=== PATIENT | female | born 1965 | race Caucasian/White ===

== ENCOUNTER 2019-07-27 12:28 | Inpatient (IN) | payer MEDICAID ==
[~2019-07-27] VITALS: Ht 160 cm; Wt 49.4 kg
[2019-07-27] MEDS ORDERED: ACETAMINOPHEN TAB 650MG DOSE (2X325MG) PO PRN (12:45)
[2019-07-27] MEDS ORDERED: traZODone 50 MG TAB PO PRN (12:45)
[2019-07-27] MEDS ORDERED: MAALOX 30 ML SUSP *UDC PO PRN (12:45)
[2019-07-27] MEDS ORDERED: MOM 30ML SUSPENSION UDC PO PRN (12:45)
[2019-07-27 15:23] VITALS: BP 107/63
[2019-07-27] MEDS ORDERED: Vitamin B PO (15:32)
--- NOTE | 2019-07-27 16:04 | HPEPDOC ---
General Date of Admission Jul 27, 2019 at 15:17 Date of Service: Jul 27, 2019 Chief Complaint The patient is a 54-year-old female admitted with a reason for visit of Unspecified Bipolar Disorder. Source: Patient, Other (EMR) History of Present Illness This is a 54 years old female with past medical history of unspecified psychiatric disorder, empty sella syndrome, possible schizophrenia, was recently admitted to this hospital when she was transferred from [facility] with altered mental status. Patient had extensive workup done at [facility], including CT head, MRI and all the blood work and was found to be essentially unremarkable and was seen by psychiatry and will be transferred to inpatient mental health unit for possible schizophrenia secondary to an hallucinations. Home Medications Scheduled [Vitamin B] , Unknown Dose PO DAILY for General health, (Reported) Allergies Coded Allergies: No Known Allergies (Verified Allergy, Unknown, 07/26/19) Past Medical History Medical History Schizophrenia. Empty sella syndrome, on the specifics psychiatric disorder Surgical History . Family History Significant Family History: No pertinent family hx Social History * Smoker: Denies Alcohol: Denies Drugs: denies A-FIB/CHADSVASC A-FIB History Current/History of A-Fib/PAF?: No Review of Systems Constitutional: Denies: Chills, Fever, Malaise, Night Sweats, Weakness, Fatigue, Weight Loss, Lethargy, Other Eyes: Denies: Pain, Vision change, Conjunctivae inflammation, Eyelid inflammation, Redness, Other ENT: Denies: Head Aches, Ear Pain, Dysphagia, Sinus Congestion, Post Nasal Drip, Sore Throat, Epistaxis, Other Symptoms Skin: Denies: Rash, Lesions, Jaundice, Bruising, Itching, Dry, Breakdown, Nail Changes, Other Pulmonary: Denies: Dyspnea, Cough, Pleuritic Chest Pain, Other Symptoms Cardiovascular: Denies: Chest Pain, Palpitations, Orthopnea, Paroxysmal Noc. Dyspnea, Edema, Lt Headedness, Other Symptoms Gastrointestinal: Denies: Nausea, Vomiting, Abdominal Pain, Diarrhea, Constipation, Melena, Hematochezia, Other Symptoms Endocrine: Denies: Polydipsia, Polyphagia, Polyuria, Heat Intolerance, Cold Intolerance, Other Endocrine Sx Musculoskeletal: Denies: Neck Pain, Back Pain, Shoulder Pain, Arm Pain, Hand Pain, Leg Pain, Foot Pain, Joint Pain, Muscle Pain, Spasms, Other Symptoms Psych: Denies: Mood Normal, Anxiety, Depression, Memory Issues, Thoughts of Self Harm, Anger, Thoughts of Harming Other, Other Psych Physical Examination General Exam: Positive: Alert, Cooperative Eye Exam: Positive: PERRLA, Conjunctiva & lids normal ENT Exam: Positive: Atraumatic Neck Exam: Positive: Supple, JVD Chest Exam: Positive: Clear to auscultation, Normal air movement Heart Exam: Positive: Rate Normal, Normal S1, Normal S2 Abdomen Exam: Positive: Normal bowel sounds, Soft, Tenderness Extremity Exam: Positive: Normal pulses Skin Exam: Positive: Nl turgor and temperature Neuro Exam: Positive: Strength at 5/5 X4 ext, Sensation Intact Psych Exam: Positive: Mental status NL, Oriented x 3 Vital Signs Vital Signs Date Time Temp Pulse Resp B/P (MAP) Pulse Ox O2 Delivery O2 Flow Rate FiO2 07/27/19 15:23 97.9 90 16 107/63 (78) 100 Room Air Problems (1) Schizophrenia Status: Acute Problem Specific Plan: Consult Specialist Problem Text: 54 years old female with past medical history of unspecified psychiatric disorder, was transferred from [facility] as directed admission to [facility] with altered mental status. Patient had a paranoid delusions and the visual hallucinations and patient was seen by psychiatry and is being admitted to inpatient mental health unit for possible psychosis/schizophrenia Patient does not have a history of any medical conditions. We will review all her medical records and if any blood work is needed, we'll order during his stay in the [facility]. Patient will participate in individual and group counseling psychiatric meds as per Jessica , We will closely monitor patient while she is in [facility] (2) Empty sella syndrome Status: Chronic Problem Text: No further recommendation at this point Plan / VTE VTE Prophylaxis Ordered?: No VTE Exclusion Mechanical Proph: Low Risk for VTE VTE Exclusion Pharmacological: At Low Risk for VTE TRISH CHAN MD Jul 27, 2019 16:04
[2019-07-27] MEDS: risperiDONE 1 MG TAB PO SCH (21:00)
--- NOTE | 2019-07-27 22:35 | MHHPE ---
DATE OF ADMISSION: 07/27/2019 CURRENT MEDICATION: None. CHIEF COMPLAINT: Patient was found wandering disoriented at [facility]. HISTORY OF PRESENT ILLNESS: This is a 54-year-old white female, , living with her and adult son. She was found wandering the halls at the local hospital in a confused state. Patient was then transferred to [facility] for psychiatric assessment and medical evaluation. Patient was noted to be disoriented in the emergency room. She was no oriented to time. Her speech was noted to be quite tangential. After the patient was medically cleared, a psychiatric consult was requested. The patient was seen and interviewed as was her , [place]. The patient reports that people are spying on her. There are cameras in her bathroom installed by Carmelo Sandoval. She claims that there was a conspiracy run by the local police to spy on her. She claims that people are entering the house, stealing items and then returning them. She sends her son multiple text messages claiming that people are watching her and spying upon her. She claims to have a special friendship with TV channel personality Kathleen Del Valle. She claims that this personality speaks to her over the television. Patient's states that his has been going downhill for the past 18 months. She has been more agitated over the last 4 to 6 weeks. He brought her in to the local mental health clinic yesterday. They made a followup appointment, but did not recommend hospitalization. Patient herself minimizes any symptoms. She claims her appetite is good, however, her has noted marked weight loss over the past year. She claims her concentration is fine. She denies sleep issues, but her states that she is often up all night. PAST PSYCHIATRIC HISTORY: Patient denies. Patient's states that his has never seen a psychiatrist. PAST MEDICAL HISTORY: Patient claims she is healthy. Patient did get an MRI which shows evidence of possible empty sella syndrome. ALLERGIES: Patient denies. LEGAL ISSUES: Patient denies. CHEMICAL DEPENDENCY HISTORY: Negative. SOCIAL HISTORY: Patient born in [place] and raised in [place], [place]. She currently lives in [place], [place] with her and son, age 29. She had a son Hany who Committed suicide about 6 or 7 years ago. The patient is a high school graduate. 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 FAMILY PSYCHIATRIC HISTORY: Patient's son who committed suicide had a diagnosis of schizophrenia. MENTAL STATUS EXAM: Patient is alert and oriented. She is pleasant. She is not agitated. She has poor insight and poor judgment. Speech is quite rapid and pressured. Patient reports auditory hallucinations. She reports paranoid ideation with conspiracy themes. No current signs of depression. Patient does appear to be manic. No signs of cognitive deficits. Memory functions are intact. Fund of information appears within normal limits. ASSESSMENT: The patient appears to have a psychotic state either bipolar or schizophrenic in nature. She clearly can benefit from antipsychotic medication such as Risperdal. Length of stay; 7-10 days. DIAGNOSES: Bipolar disorder, manic with psychotic features. Rule out schizoaffective disorder. PLAN: Admit 9.39. Start trial of Risperdal 1 mg twice a day. Involve in hospital milieu. Staff to work with family for discharge planning.
[2019-07-28 05:58] VITALS: BP 114/68
[2019-07-28] MEDS: risperiDONE 1 MG TAB PO SCH ×2 (08:35→21:00)
[2019-07-28 16:20] VITALS: BP 114/63
[2019-07-29 05:43] VITALS: BP 116/67
--- NOTE | 2019-07-29 08:10 | MHIPN ---
DATE: 07/28/2019 VITAL SIGNS: Temperature 98.3, pulse 92, respirations 14, blood pressure 114/68. CURRENT MEDICATIONS: - Risperdal 1 mg twice a day; patient refusing HISTORY OF THE PRESENT ILLNESS: Patient claims she does not need to be in the hospital. She threatens to call the local rug cleaner hand to intervene to get her out of the hospital. She claims she will have the state troopers take her home. Patient reports bizarre ideation to staff; for example, she believes that she is a mother to all the patients here on the unit and that her roommate is her [id number]. She claims that her has mental health issues and not herself. She still believes that there is a conspiracy against her and that there are cameras throughout her house. She denies current depressive symptoms. She denies that she is crazy. She claims her appetite is fine. She states her weight has been stable even though reports she has lost a great deal of weight. MENTAL STATUS EXAM: Patient is alert and oriented, but is not cooperative. She shows poor insight in refusing her medication. Patient does report paranoid content with recent auditory hallucinations. Speech is rambling and tangential. Thought content is grandiose and delusional. She is not overtly depressed. Grooming and hygiene appear good. Eye contact is good. Insight and judgment quite impaired. No signs of cognitive deficits. ASSESSMENT: Patient is showing poor insight and poor judgment in refusing psychotropics. DIAGNOSIS: Bipolar disorder, manic, with psychotic features. Rule out schizoaffective disorder. PLAN: Encourage medication compliance. Encourage hospital milieu involvement.
[2019-07-29] MEDS ORDERED: FLUBLOK(EGG FREE)(QUAD)INFLUENZA VACC 0.5ML SYRINGE (90682)18YRS&OLDER IM ONE (09:00)
[2019-07-29] MEDS: risperiDONE 1 MG TAB PO SCH ×2 (09:18→21:00)
[2019-07-29 16:07] VITALS: BP 102/70
[2019-07-30 06:22] VITALS: BP 128/78
--- NOTE | 2019-07-30 06:58 | MHIPN ---
DATE OF VISIT: 07/29/2019 VITAL SIGNS: Temperature 99.4, pulse 100, respirations 18, blood pressure 116/67. CURRENT MEDICATIONS: - Risperdal 1 mg twice a day - trazodone 50 mg nightly as needed HISTORY OF PRESENT ILLNESS: The patient is still reporting psychotic symptoms to staff. She wants to go home. She has no insight into her condition. She is still convinced that the police are spying on her in her house. For example, she describes the bizarre delusional belief that she had some carpet removed in her room having it replaced with hardware floors only to have the floors "stolen." and the carpet returned mysteriously. The patient complains of bad nightmares. They are typically of family funerals which scared her. The patient does report to having some mental confusion which scares her. We discussed having her cooperative with a trial of Risperdal. She grudgingly agrees. Her is interviewed briefly as he comes in visiting hours. He supports her cooperating with the treatment plan. MENTAL STATUS EXAM: The patient is alert and oriented but minimally cooperative. Insight is poor, judgment is poor. No signs of depression. Speech is still rapid. She has significant paranoia with auditory hallucinations. She has delusional beliefs. She is not voicing any homicidal or suicidal thoughts at this time. No signs of cognitive deficits. DIAGNOSES: Schizophrenia versus schizoaffective disorder versus bipolar disorder. PLAN: Encourage a trial of Risperdal 1 mg twice a day.
[2019-07-30] MEDS: risperiDONE 1 MG TAB PO SCH ×2 (08:58→21:42)
[2019-07-30 15:24] VITALS: BP 107/64
[2019-07-31 06:44] VITALS: BP 121/63
[2019-07-31] MEDS: risperiDONE 1 MG TAB PO SCH ×2 (09:09→20:54)
[2019-07-31 18:07] VITALS: BP 127/76
[2019-08-01 06:30] VITALS: BP 117/76
[2019-08-01] MEDS: risperiDONE 1 MG TAB PO SCH ×2 (08:31→20:01)
--- NOTE | 2019-08-01 08:45 | MHIPN ---
DATE: 07/31/2019 VITAL SIGNS: Temperature 98.9, pulse 107, respirations 16, blood pressure 121/63. CURRENT MEDICATIONS: Risperdal 1 mg twice a day with episodic compliance. The patient has taken her last two doses. HISTORY OF PRESENT ILLNESS: The patient is upset this morning. She felt that the staff member was critical of her in the morning group. She felt picked on. She reports paranoid ideation. For example, she states that people in the apartment building next to where she worked at the [employer] were talking about her and shouting at her. She asked her son about it who heard nothing. The patient no longer reports having auditory hallucinations from the television news personality. The patient has been attending group therapy and socializing with her peers. MENTAL STATUS EXAMINATION: The patient is alert and oriented. She is more cooperative. Insight and judgment remain poor. The patient's affect is sad today with some mild depression. Paranoia is still persistent. She denies auditory hallucinations today. She is still quite delusional. She is not voicing any wish to harm self or others. No signs of cognitive deficits. DIAGNOSIS: Schizoaffective disorder. PLAN: Continue Risperdal 1 mg twice a day. Consider trial on antidepressant. Patient to see Dr. Escobar as of tomorrow.
--- NOTE | 2019-08-01 08:58 | MHIPN ---
DATE: 07/30/2019 VITAL SIGNS: Temperature 99.9, pulse 94, respirations 16, blood pressure 128/73. CURRENT MEDICATION: - Risperdal 1 mg (patient refusing) twice a day HISTORY OF PRESENT ILLNESS: The patient is still reporting paranoid ideation. However, she states "I'm not crazy." She still has no idea why she is in the hospital. She is refusing the Risperdal unfortunately. She is encouraged to comply with it. She still feels paranoid about her claiming that he is out to get her. She is convinced that there are cameras watching her. MENTAL STATUS EXAM: The patient is alert and oriented but not cooperative. Her insight remains poor. Judgment is poor. She is not depressed. Speech is still quite rapid. Speech content is rambling and tangential. She is still quite paranoid. She has auditory hallucinations. No signs of organicity. DIAGNOSIS: Schizophrenia, paranoid type versus schizoaffective disorder. PLAN: Continue present management. Encourage medication compliance. Edited: 08/01/2019 [id number] romi
--- NOTE | 2019-08-01 10:20 | MHIPNPDOC ---
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 She usually presents earlier in the morning and cleans, however, she was found later in the morning bizarrely making statements. She was sent home, however, her son became quite worried and brought her in. She was noted to be fairly distorted and unable to attend to her needs. Interval History The patient was met with, she was sleeping, however, she was still fairly tangential and bizarre. She reports she had had some difficulty remembering the events of the day and still appears somewhat confused with her thought process unclear. I did ask her review of systems, however, she was not able to focus, although pleasant she still remains so psychotic that she is unable to care for herself. Staff note that there are no major behavioral problems and she has been amenable to the treatment. She has begun taking her risperidone regularly and reported that she would be okay taking the injectable. Review Of Systems Unable to answer due to mental status. Psychotherapy None on this visit. Vital Signs Reviewed. Mental Status Examination General: Poor hygiene Speech: Mildly pressured Thought processes: Tangential MSK: Smooth and coordinated gait, no signs of tremors or involuntary orofacial movements Thought content: Bizarre Abstract reasoning, and computation: Impaired Description of associations: Impaired Description of abnormal or psychotic thoughts: Appears to respond to internal stimuli Judgment: Impaired Insight: Impaired Orientation: Alert and orientated 3 Cognition: Grossly normal Recent and remote memory: Impaired secondary to thought process Attention span and concentration: Impaired secondary to thought process Fund of knowledge: Unknown Mood: "okay" Affect: Euthymic with a full range Diagnoses Schizophrenia. Assessment and Plan Schizophrenia: Continue risperidone 1 mg BID, we'll start risperidone Consta tomorrow 25 mg every 2 weeks. Disposition The patient will need a further inpatient admission in order to treat her severely impairing psychosis that makes her unable to care for herself. Time Spent 15 minutes. Tuesday Vital Signs Vital Signs Date Time Temp Pulse Resp B/P (MAP) Pulse Ox O2 Delivery O2 Flow Rate FiO2 08/01/19 06:30 97.9 105 16 117/76 (90) 07/27/19 15:23 100 Room Air Current Medications Current Medications Medications (Trade) Dose Ordered Sig/Luh Route PRN Reason Start Time Stop Time Status Last Admin Dose Admin Acetaminophen (Tylenol Tab) 650 mg Q6HP PRN PO HEADACHE or DISCOMFORT 07/27/19 12:45 07/30/19 18:02 Al Hydrox/Mg Hydrox/Simethicone (Mylanta) 30 ml Q4HP PRN PO HEARTBURN/INDIGESTION 07/27/19 12:45 Magnesium Hydroxide (Milk Of Magnesia) 30 ml DAILYPRN PRN PO CONSTIPATION 07/27/19 12:45 Risperidone (RisperDAL) 1 mg BID PO 07/27/19 21:00 08/01/19 08:31 Trazodone HCl (Desyrel) 50 mg QHSP PRN PO INSOMNIA 07/27/19 12:45 Allergies Coded Allergies: No Known Allergies (Verified Allergy, Unknown, 07/26/19) BULMARO BOUCHER DO Aug 01, 2019 10:20
[2019-08-01 18:33] VITALS: BP 131/79
[2019-08-02 06:35] VITALS: BP 114/56
[2019-08-02] MEDS: risperiDONE 1 MG TAB PO SCH ×3 (09:00→20:14)
--- NOTE | 2019-08-02 09:16 | MHIPNPDOC ---
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 She usually presents earlier in the morning and cleans, however, she was found later in the morning bizarrely making statements. She was sent home, however, her son became quite worried and brought her in. She was noted to be fairly distorted and unable to attend to her needs. Interval History The patient was met with today again. She reports that she has become more clear. She still has some difficulty responding to internal stimuli and being somewhat bizarre. She reports that she has forgotten who this provider is multiple times. She still appears to wander at times in a haze. Nursing staff reports she does get worse and more paranoid at night. She still appears confused at times. She has had no major behavioral episodes overnight. Review Of Systems General: Denies fever or appetite changes Cardiovascular: Denies Chest pain or palpations GI: Denies Nausea, vomiting, or bowel changes Respiratory: Denies shortness of breath or cough Neuro: Denies dizziness, tremors Derm: Denies any rashes or pruritus : Denies any dysuria or urinary problems MSK: Denies any muscle tightness or stiffness HEENT: Denies any vision changes or headaches Heme/Lymph: denies any bruising or bleeding Endo: denies any cold/heat intolerance or water intake changes Psychotherapy None on this visit. Vital Signs Reviewed. Mental Status Examination General: Poor hygiene Speech: Mildly pressured Thought processes: Tangential MSK: Smooth and coordinated gait, no signs of tremors or involuntary orofacial movements Thought content: Bizarre Abstract reasoning, and computation: Impaired Description of associations: Impaired Description of abnormal or psychotic thoughts: Appears to respond to internal stimuli Judgment: Impaired Insight: Impaired Orientation: Alert and orientated 3 Cognition: Grossly normal Recent and remote memory: Impaired secondary to thought process Attention span and concentration: Impaired secondary to thought process Fund of knowledge: Unknown Mood: "okay" Affect: Euthymic with a full range Diagnoses Schizophrenia. Assessment and Plan Schizophrenia: Continue risperidone 1 mg BID, risperidone Consta 25 mg given today. Disposition The patient will need a further inpatient admission in order to treat her severely impairing psychosis that makes her unable to care for herself. Time Spent 15 minutes [id number]. Vital Signs Vital Signs Date Time Temp Pulse Resp B/P (MAP) Pulse Ox O2 Delivery O2 Flow Rate FiO2 08/02/19 06:35 98.3 91 12 114/56 (75) Room Air 07/27/19 15:23 100 Current Medications Current Medications Medications (Trade) Dose Ordered Sig/Luh Route PRN Reason Start Time Stop Time Status Last Admin Dose Admin Acetaminophen (Tylenol Tab) 650 mg Q6HP PRN PO HEADACHE or DISCOMFORT 07/27/19 12:45 07/30/19 18:02 Al Hydrox/Mg Hydrox/Simethicone (Mylanta) 30 ml Q4HP PRN PO HEARTBURN/INDIGESTION 07/27/19 12:45 Magnesium Hydroxide (Milk Of Magnesia) 30 ml DAILYPRN PRN PO CONSTIPATION 07/27/19 12:45 Risperidone (RisperDAL) 1 mg BID PO 07/27/19 21:00 08/01/19 20:01 Trazodone HCl (Desyrel) 50 mg QHSP PRN PO INSOMNIA 07/27/19 12:45 Allergies Coded Allergies: No Known Allergies (Verified Allergy, Unknown, 07/26/19) BULMARO BOUCHER DO Aug 02, 2019 09:16
[2019-08-02] MEDS ORDERED: BENZTROPINE 0.5 MG TAB PO PRN (09:45)
[2019-08-02] MEDS ORDERED: risperiDONE LONG-ACTING 25 MG/2 ML INJ (J2794 PER 0.5MG) IM ONE (10:00)
[2019-08-02 18:00] VITALS: BP 120/70
[2019-08-03 06:18] VITALS: BP 116/56
[2019-08-03] MEDS: risperiDONE 1 MG TAB PO SCH ×2 (10:11→20:05)
--- NOTE | 2019-08-03 10:45 | MHIPNPDOC ---
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 She usually presents earlier in the morning and cleans, however, she was found later in the morning bizarrely making statements. She was sent home, however, her son became quite worried and brought her in. She was noted to be fairly distorted and unable to attend to her needs. Interval History The patient is met with today, she is more clear, however I discussed with her at length. She still has difficulty with paranoia and food hiding. She still has difficulty trusting others, but has come to realize that at time she gets worse. Staff continued to report that at night she becomes more paranoid and although nonaggressive is more unruly. She reports that she is amenable to staying further as she has some arm pain mildly from her injection. An intense amount of time was taken to explain the rationale for further admission as well as medication observation and great psych care is taken and psychoeducation of the patient. Review Of Systems General: Denies fever or appetite changes Cardiovascular: Denies Chest pain or palpations GI: Denies Nausea, vomiting, or bowel changes Respiratory: Denies shortness of breath or cough Neuro: Denies dizziness, tremors Derm: Denies any rashes or pruritus : Denies any dysuria or urinary problems MSK: Denies any muscle tightness or stiffness HEENT: Denies any vision changes or headaches Heme/Lymph: denies any bruising or bleeding Endo: denies any cold/heat intolerance or water intake changes Psychotherapy None on this visit. Vital Signs Reviewed. Mental Status Examination General: Poor hygiene Speech: Mildly pressured Thought processes: Tangential MSK: Smooth and coordinated gait, no signs of tremors or involuntary orofacial movements Thought content: Bizarre Abstract reasoning, and computation: Impaired Description of associations: Impaired Description of abnormal or psychotic thoughts: Appears to respond to internal stimuli Judgment: Impaired Insight: Impaired Orientation: Alert and orientated 3 Cognition: Grossly normal Recent and remote memory: Impaired secondary to thought process Attention span and concentration: Impaired secondary to thought process Fund of knowledge: Unknown Mood: "okay" Affect: Euthymic with a full range Diagnoses Schizophrenia. Assessment and Plan Continue risperidone 1 mg BID. Disposition The patient will need a further inpatient admission in order to treat her severely impairing psychosis that makes her unable to care for herself. Time Spent 20 minutes Tuesday Vital Signs Vital Signs Date Time Temp Pulse Resp B/P (MAP) Pulse Ox O2 Delivery O2 Flow Rate FiO2 08/03/19 06:18 98.1 105 16 116/56 (76) 08/02/19 06:35 Room Air Current Medications Current Medications Medications (Trade) Dose Ordered Sig/Luh Route PRN Reason Start Time Stop Time Status Last Admin Dose Admin Acetaminophen (Tylenol Tab) 650 mg Q6HP PRN PO HEADACHE or DISCOMFORT 07/27/19 12:45 07/30/19 18:02 Al Hydrox/Mg Hydrox/Simethicone (Mylanta) 30 ml Q4HP PRN PO HEARTBURN/INDIGESTION 07/27/19 12:45 Benztropine Mesylate (Cogentin) 0.25 mg BIDP PRN PO eps 08/02/19 09:45 Magnesium Hydroxide (Milk Of Magnesia) 30 ml DAILYPRN PRN PO CONSTIPATION 07/27/19 12:45 Risperidone (RisperDAL) 1 mg BID PO 07/27/19 21:00 08/03/19 10:11 Trazodone HCl (Desyrel) 50 mg QHSP PRN PO INSOMNIA 07/27/19 12:45 Allergies Coded Allergies: No Known Allergies (Verified Allergy, Unknown, 07/26/19) BULMARO BOUCHER DO Aug 03, 2019 10:45
[2019-08-03 18:00] VITALS: BP 121/74
[2019-08-04 06:44] VITALS: BP 100/63
[2019-08-04] MEDS: risperiDONE 1 MG TAB PO SCH ×2 (09:46→20:22)
[2019-08-04 17:04] VITALS: BP 120/72
[2019-08-05 06:47] VITALS: BP 107/64
[2019-08-05] MEDS: risperiDONE 1 MG TAB PO SCH ×2 (08:26→20:31)
[2019-08-05 15:37] VITALS: BP 113/65
[2019-08-06 06:02] VITALS: BP 143/85
[2019-08-06] MEDS: risperiDONE 1 MG TAB PO SCH (08:39)
--- NOTE | 2019-08-06 09:25 | MHDSPDOC ---
[facility] Discharge Summary Discharge Summary DATE OF ADMISSION: Jul 27, 2019 at 15:17 DATE OF DISCHARGE: 08/06/19 Discharge Kiara Valladares MRN: N/A Date of : N/A Date of Service: 08/06/2019 Diagnoses Schizophrenia. 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 She usually presents earlier in the morning and cleans, however, she was found later in the morning bizarrely making statements. She was sent home, however, her son became quite worried and brought her in. She was noted to be fairly distorted and unable to attend to her needs. Consultants Involved Hospitalist/PCP screening Treatment and Progress On The Unit The patient was admitted to the unit and subsequently started on risperidone 0.5 mg daily, increased to a total of 1 mg BID with positive effects reducing her paranoia, distortions and disorganized behavior. She improved well, accepted the risperidone Concerta after discussion of the risks and benefits at 25 mg on August 02, 2019. She subsequently was observed over the weekend as she had been on requesting to go. She also had some mild paranoia, which appear to resolve. At times, she did have some bizarre thought processes, but this appears highly intermittent and she had demonstrated no concerning behavior denying suicidal and homicidal ideation through the entirety of her admission. On the day of discharge, she had requested ago and did not appear to be overly impaired by her mental health process, cooperative with discharge and declining further voluntary admission. She was discharged in good mallory with followup care. Discharge Assessment 54-year-old woman with likely paranoid schizophrenia. She does well on risperidone and is treated with long-acting injectable. Mental Status Examination General: Well dressed with good hygiene Speech: Spontaneous and fluid Thought processes: Linear and logical MSK: Smooth and coordinated gait, no signs of tremors or involuntary orofacial movements Thought content: Future orientated Abstract reasoning, and computation: Intact Description of associations: Intact Description of abnormal or psychotic thoughts: Denies any suicidal or homicidal ideation. Denies any auditory or visual hallucinations. Does not appear to be responding to internal stimuli. Does not appear to be endorsing any bizarre or paranoid ideation. Judgment: fair Insight: fair Orientation: Alert and orientated 3 Cognition: Grossly normal Recent and remote memory: Intact Attention span and concentration: Intact Fund of knowledge: Adequate Mood: "okay" Affect: Euthymic with a full range Follow Up The social work team worked during the predischarge meeting in order to evaluate for further issues of lethality address them fully before discharge. They worked on safety planning with the patient's family members in order to ensure that the patient will have a safe and effective discharge. Time Spent The amount of time spent in the coordination of care for this patient was approximately 60 minutes. Tuesday Vital Signs/I&Os Vital Signs Date Time Temp Pulse Resp B/P (MAP) Pulse Ox O2 Delivery O2 Flow Rate FiO2 08/06/19 06:02 98.0 92 18 143/85 (104) 08/02/19 06:35 Room Air Medications Scheduled Risperidone (Risperdal) 1 Mg Tablet, 1 MG PO BID for thoughts for 7 Days, #14 Risperidone (Risperdal Consta) 50 Mg/2 Ml Syringe, 25 MG IM Q2WK for thoughts for 14 Days, #1 next due on aug 16 2019 [Vitamin B] , Unknown Dose PO DAILY for General health, (Reported) Scheduled PRN Benztropine Mesylate (Benztropine Mesylate) 0.5 Mg Tablet, 0.25 MG PO BIDP PRN for eps for 7 Days, #7 Allergies Coded Allergies: No Known Allergies (Verified Allergy, Unknown, 07/26/19) BULMARO BOUCHER DO Aug 06, 2019 09:25
[2019-08-06] MEDS ORDERED: RISP1TAB42 PO (10:41)
[2019-08-06] MEDS ORDERED: RISP50INJ IM (10:41)
[2019-08-06] MEDS ORDERED: BENZ0.5T23 PO (10:41)
== END 2019-08-06 13:15 | disposition home or self-care (01) | DRG 750 ==
LOC: M PSY 15:17
PROVIDERS: ADMIT Psychiatry & Neurology Psychiatry; ATTEND Psychiatry & Neurology Addiction Medicine
DX: F20.0 Paranoid schizophrenia (principal); Z79.899 Other long term (current) drug therapy

== ENCOUNTER 2020-03-02 00:16 | Emergency (ER) | payer MEDICAID, OTHER ==
[~2020-03-02] VITALS: Ht 157.5 cm; Wt 58.9 kg
[~2020-03-02 00:16] MED LIST: BENZ0.5T23 PO; RISP1TAB42 PO; RISP50INJ IM; Vitamin B PO
[2020-03-02 02:10] LABS: HEMATOCRIT 39.7 % (36.0-47.0); HEMOGLOBIN 13.3 g/dl (12.0-15.5); MEAN CORPUSCULAR HEMOGLOBIN 30.8 pg (27.0-33.0); MEAN CORPUSCULAR HGB CONC 33.5 g/dl (32.0-36.5); MEAN CORPUSCULAR VOLUME 91.9 fl (80.0-96.0); PLATELET COUNT, AUTOMATED 231 10^3/uL (150-450); RED BLOOD COUNT 4.32 10^6/uL (4.00-5.40); WHITE BLOOD COUNT 8.5 10^3/uL (4.0-10.0)
[2020-03-02 02:33] LABS: AMPHETAMINES LEVEL URINE NEGATIVE (NEGATIVE); BARBITURATES URINE NEGATIVE (NEGATIVE); BENZODIAZEPINES URINE NEGATIVE (NEGATIVE); CANNABINOIDS URINE NEGATIVE (NEGATIVE); COCAINE METABOLITE URINE NEGATIVE (NEGATIVE); METHADONE URINE NEGATIVE (NEGATIVE); OPIATES URINE NEGATIVE (NEGATIVE); PHENCYCLIDINE URINE NEGATIVE (NEGATIVE)
[2020-03-02 02:44] LABS: ALBUMIN 3.9 GM/DL (3.2-5.2); ALT/SGPT 38 U/L (12-78); BILIRUBIN,DIRECT 0.1 MG/DL (0.0-0.2); BILIRUBIN,TOTAL 0.3 MG/DL (0.2-1.0); BLOOD UREA NITROGEN 14 MG/DL (7-18); CALCIUM LEVEL 9.4 MG/DL (8.5-10.1); CARBON DIOXIDE LEVEL 27 MEQ/L (21-32); CHLORIDE LEVEL 104 MEQ/L (98-107); CREATININE FOR GFR 0.79 MG/DL (0.55-1.30); ETHYL ALCOHOL (ETHANOL) 0.004 % (0.000-0.010); GLOMERULAR FILTRATION RATE > 60.0 (>51); GLUCOSE, FASTING 103 MG/DL (70-100); POTASSIUM SERUM 3.8 MEQ/L (3.5-5.1); SALICYLATE LEVEL < 1.7 MG/DL (5.0-30.0); SODIUM LEVEL 136 MEQ/L (136-145); THYROID STIMULATING HORMONE 0.993 uIU/ML (0.358-3.740); TOTAL PROTEIN 7.5 GM/DL (6.4-8.2)
[2020-03-02 02:45] LABS: ACETAMINOPHEN LEVEL < 2.0 UG/ML (10.0-30.0)
[2020-03-02] MEDS ORDERED: OLANZapine INTRAMUSCULAR 10MG VIAL IM ONE ×2 (04:45→13:00)
[2020-03-02] MEDS ORDERED: LORazepam 1 MG TAB PO STA (12:44)
[2020-03-02 14:15] VITALS: BP 121/75
--- NOTE | 2020-03-03 15:28 | ECGEPIP ---
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
== END 2020-03-02 14:17 ==
LOC: M ED 00:16
DX: F20.9 Schizophrenia, unspecified (principal); Z91.14 Patient's other noncompliance with medication regimen
CPT/HCPCS: 80048; 80076; 80307; 84443; 85027; 87486; 87581; 87633; 87798; 93005; 96372; 99285; G0480